=== PATIENT | female | born 1940 | race Caucasian/White ===

== ENCOUNTER 2020-07-21 00:38 | Emergency (ER) | payer MEDICARE, SELFPAY ==
[2020-07-21 00:42] VITALS: BP 134/94; PULSE 66; RESP 17; TEMP 36.9; O2SAT 96; BMI 28.0
--- NOTE | 2020-07-21 00:44 | CTR_ITS ---
PROCEDURE INFORMATION: Exam: CT Abdomen And Pelvis With Contrast Exam date and time: 07/21/2020 12:50 AM Age: 79 years old Clinical indication: Abdominal pain; Generalized; Prior surgery; Surgery type: Gb. Appy. Hystero. ; Patient HX: Abd pain with hematochezia this a. M. History of breast cancer. TECHNIQUE: Imaging protocol: Computed tomography of the abdomen and pelvis with contrast. Radiation optimization: All CT scans at this facility use at least one of these dose optimization techniques: automated exposure control; mA and/or kV adjustment per patient size (includes targeted exams where dose is matched to clinical indication); or iterative reconstruction. Contrast material: OMNI 300; Contrast volume: 95 ml; Contrast route: INTRAVENOUS (IV); COMPARISON: CT Chest 03-20-18 RADIATION DOSE METRICS: Total DLP (mGy-cm): 486.3 FINDINGS: Lungs: Right lower lobe calcified granuloma. Heart: Mild cardiomegaly. Mediastinal space: Small hiatal hernia. Liver: Normal. No mass. Gallbladder and bile ducts: Cholecystectomy. Pancreas: Normal. No ductal dilation. Spleen: No splenomegaly. Adrenal glands: Normal. No mass. Kidneys and ureters: 2.6 cm simple right renal cyst. Stomach and bowel: Duodenal diverticulum. Mild wall thickening of a portion of the descending colon with trace pericolonic fat stranding, consistent with colitis. Appendix: No evidence of acute appendicitis. Intraperitoneal space: No free air. No significant fluid collection. Vasculature: No abdominal aortic aneurysm. Lymph nodes: No enlarged lymph nodes. Urinary bladder: Unremarkable as visualized. Reproductive: Hysterectomy. Bones/joints: Unremarkable. No acute fracture. Soft tissues: Unremarkable. CT/CT abdomen pelvis w con* [id number] IMPRESSION: Mild wall thickening of a portion of the descending colon with trace pericolonic fat stranding, consistent with colitis. COMMENTS: Consistent with the [employer]'s Incidental Findings Committee white paper (J Am Josué Radiol 2018): Any incidental renal lesion less than 1 cm or classified as too small to characterize, or any incidental cystic renal lesion characterized as simple-appearing, is likely benign. No follow-up imaging is recommended for these lesions per consensus recommendations based on imaging criteria. Radiation Dose CTDIVOL = (mGy): DLP = 486.3 (mGy-cm)
--- NOTE | 2020-07-21 00:45 | ED_ITS ---
HPI - GI Bleed General: Chief complaint: GI Bleed Stated complaint: gi bleed Time Seen by Provider: 07/21/20 00:44 Source: patient Mode of arrival: ambulatory Limitations: no limitations History of Present Illness: HPI Narrative: 79-year-old female who states she was on the bathroom earlier and had a large bright red bloody bowel movement. She states she had some abdominal cramping but denies any dizziness and blood pressure here is normal. She states that she has had no history of GI bleeding in the past. Denies any worsening. Factors. She takes an aspirin but no other blood thinners. Associated symptoms: Denies chills, easy bruising, fever(s), headache(s) or rash Review of Systems Const: Denies: fever(s), chills, body aches or change in appetite Eyes: Denies: blurry vision or eye discomfort ENMT: Denies: throat pain or dental pain Card: Denies: chest pain Resp: Denies: dyspnea GI: Reports: hematochezia : Denies: dysuria Musc: Denies: neck pain or back pain Skin/Breast: Denies: rash Neuro: Denies: headache(s) Psych: Denies: depression Chandra/Lymph: Denies: easy bruising All/Imm: Denies: urticaria Physical Exam Const: COMMON NORMALS: no acute distress, patient oriented x3 and healthy appearing HENMT: COMMON NORMALS: normocephalic and atraumatic HEAD & SCALP: normocephalic and atraumatic Eye: COMMON NORMALS: Equal, round and reactive pupils present and EOMs intact bilaterally PUPIL: Yes Equal, round and reactive pupils present Neck/C-Spine: COMMON NORMALS: full ROM and supple Chest: COMMONS NORMALS: normal inspection of the chest and normal palpation of entire chest wall Resp: COMMON NORMALS: normal respiratory effort, No retractions, No use of accessory muscles and clear to auscultation bilaterally AUSCULTATION: clear to auscultation bilaterally Cardio: COMMON NORMALS: regular rate, regular rhythm and No murmurs present (Cardio) RATE: regular rate RHYTHM: regular rhythm GI: COMMON NORMALS: Normal to inspection, nondistended, normoactive bowel sounds present, Soft to palpation, non-tender and no masses PALPATION: Yes Soft to palpation OTHER: No hemorrhoid or fissure patient does have bright red blood in her underwear mucousy appearing. No dark tarry stool Extremity: COMMON NORMALS: normal to inspection and full ROM Neuro: COMMON NORMALS: patient oriented x3, moves all extremities and no focal motor deficits Psych: COMMON NORMALS: mental status grossly normal, Normal thought process present and cooperative THOUGHT PROCESS: Normal thought process present Skin: COMMON NORMALS: no rashes or lesions noted and no wounds GENERAL SKIN EXAM: no rashes or lesions noted Course Vital Signs: Vital signs: Vital Signs Temperature 98.4 F 07/21/20 00:42 Pulse Rate 77 07/21/20 02:00 Respiratory Rate 24 H 07/21/20 02:00 Blood Pressure 161/76 07/21/20 02:00 Pulse Oximetry 98 07/21/20 02:00 MDM - GI Bleed MDM Narrative: Medical decision making narrative: Patient presents here with colitis likely causing her blood in her stool. Patient's bleeding has improved and she had abdominal here with very minimal blood. Her hemoglobin and blood pressure here are normal. She has no signs of an upper GI bleed. I feel she is stable for discharge will place her on Cipro and Flagyl. She is to follow-up with her PCP in 3 to 5 days return to ER if she has any worsening. She is to return if she has any increased bleeding. She understands and agrees to plan. Lab Data: Labs: Lab Results 07/21/20 07/21/20 07/21/20 Range/Units 01:08 01:08 01:08 WBC 14.9 H (4.0-10.0) 10^3/ uL RBC 4.25 (4.1-5.3) 10^6/u L Hgb 12.6 (11.5-15.3) g/dL Hct 38.5 (37.0-47.0) % MCV 90.6 (81-99) fL MCH 29.6 (28.0-34.0) pg MCHC 32.7 (30.0-36.0) g/dL RDW 12.2 (12.1-15.1) % Plt Count 318 (130-400) 10^3/c mm MPV 9.3 (7.4-10.4) fL Neut % (Auto) 79.2 % Lymph % (Auto) 9.7 % Sanders % (Auto) 9.1 % Eos % (Auto) 0.6 % Baso % (Auto) 0.7 % Neut # (Auto) 11.81 H (1.8-7.7) 10^3/u L Lymph # (Auto) 1.5 (0.8-4.8) 10^3/u L Sanders # (Auto) 1.4 H (0.2-0.9) 10^3/u L Eos # (Auto) 0.1 (0.0-0.8) 10^3/u L Baso # (Auto) 0.1 (0.0-0.1) 10^3/u L Nucleated RBC % (a uto) 0 % Nucleated RBCs # 0.0 /100WBC PT 13.20 (12.1-14.9) SECO NDS INR 0.97 (0.8-1.2) Sodium 134 L (136-145) mmol/L Potassium 3.8 (3.5-5.1) mmol/L Chloride 99 (98-107) mmol/L Carbon Dioxide 26 (22-29) mmol/L Anion Gap 12.8 (5-19) BUN 17 (8-23) mg/dL Creatinine 0.8 (0.5-0.9) mg/dL GFR Calculation Not Reportable Glucose 185 H (65-115) mg/dL Calculated Osmolal ity 284 L (285-295) mOsm/k g Calcium 9.3 (8.5-10.5) mg/dL Total Bilirubin 0.2 (0.15-1.2) mg/dL AST 14 (0-32) U/L ALT 16 (0-33) U/L Alkaline Phosphata se 70 (35-105) IU/L Total Protein 7.0 (6.6-8.7) g/dL Albumin 4.0 (3.5-5.2) g/dL Globulin 3.0 (1.3-4.6) g/dL Lipase 66 H (13-60) U/L Blood Type Rho(D) Type Antibody Screen 07/21/20 Range/Units 01:15 WBC (4.0-10.0) 10^3/ uL RBC (4.1-5.3) 10^6/u L Hgb (11.5-15.3) g/dL Hct (37.0-47.0) % MCV (81-99) fL MCH (28.0-34.0) pg MCHC (30.0-36.0) g/dL RDW (12.1-15.1) % Plt Count (130-400) 10^3/c mm MPV (7.4-10.4) fL Neut % (Auto) % Lymph % (Auto) % Sanders % (Auto) % Eos % (Auto) % Baso % (Auto) % Neut # (Auto) (1.8-7.7) 10^3/u L Lymph # (Auto) (0.8-4.8) 10^3/u L Sanders # (Auto) (0.2-0.9) 10^3/u L Eos # (Auto) (0.0-0.8) 10^3/u L Baso # (Auto) (0.0-0.1) 10^3/u L Nucleated RBC % (a uto) % Nucleated RBCs # /100WBC PT (12.1-14.9) SECO NDS INR (0.8-1.2) Sodium (136-145) mmol/L Potassium (3.5-5.1) mmol/L Chloride (98-107) mmol/L Carbon Dioxide (22-29) mmol/L Anion Gap (5-19) BUN (8-23) mg/dL Creatinine (0.5-0.9) mg/dL GFR Calculation Glucose (65-115) mg/dL Calculated Osmolal ity (285-295) mOsm/k g Calcium (8.5-10.5) mg/dL Total Bilirubin (0.15-1.2) mg/dL AST (0-32) U/L ALT (0-33) U/L Alkaline Phosphata se (35-105) IU/L Total Protein (6.6-8.7) g/dL Albumin (3.5-5.2) g/dL Globulin (1.3-4.6) g/dL Lipase (13-60) U/L Blood Type O Negative Rho(D) Type Negative Antibody Screen Negative Imaging Data^: CT Abd/Pel: Attestation: I personally reviewed and interpreted this imaging study as follows: Radiologist's impression: [address] [address] [address] Scan Report Signed Patient: Tiara Guallpa Unit #: [id number] : 1940 Age/Sex: 79 / F ADM Date: 07/21/20 Loc: ER Room/Bed: Attending Dr: Ordering Provider/Ordering MD: Adri Galeas MD Date of Service: 07/21/20 Procedure(s): CT abdomen pelvis w con* [id number] Accession Number(s): [id number] Report Number: [id number] PROCEDURE INFORMATION: Exam: CT Abdomen And Pelvis With Contrast Exam date and time: 07/21/2020 12:50 AM Age: 79 years old Clinical indication: Abdominal pain; Generalized; Prior surgery; Surgery type: Gb. Appy. Hystero. ; Patient HX: Abd pain with hematochezia this a. M. History of breast cancer. TECHNIQUE: Imaging protocol: Computed tomography of the abdomen and pelvis with contrast. Radiation optimization: All CT scans at this facility use at least one of these dose optimization techniques: automated exposure control; mA and/or kV adjustment per patient size (includes targeted exams where dose is matched to clinical indication); or iterative reconstruction. Contrast material: OMNI 300; Contrast volume: 95 ml; Contrast route: INTRAVENOUS (IV); COMPARISON: CT Chest 03-20-18 RADIATION DOSE METRICS: Total DLP (mGy-cm): 486.3 FINDINGS: Lungs: Right lower lobe calcified granuloma. Heart: Mild cardiomegaly. Mediastinal space: Small hiatal hernia. Liver: Normal. No mass. Gallbladder and bile ducts: Cholecystectomy. Pancreas: Normal. No ductal dilation. Spleen: No splenomegaly. Adrenal glands: Normal. No mass. Kidneys and ureters: 2.6 cm simple right renal cyst. Stomach and bowel: Duodenal diverticulum. Mild wall thickening of a portion of the descending colon with trace pericolonic fat stranding, consistent with colitis. Appendix: No evidence of acute appendicitis. Intraperitoneal space: No free air. No significant fluid collection. Vasculature: No abdominal aortic aneurysm. Lymph nodes: No enlarged lymph nodes. Urinary bladder: Unremarkable as visualized. Reproductive: Hysterectomy. Bones/joints: Unremarkable. No acute fracture. Soft tissues: Unremarkable. CT/CT abdomen pelvis w con* [id number] IMPRESSION: Mild wall thickening of a portion of the descending colon with trace pericolonic fat stranding, consistent with colitis. Discharge Plan Discharge Patient Disposition: Home Clinical Impression: Colitis, Acute lower GI bleeding Condition: Stable Prescriptions: New Cipro 500 mg tablet 500 mg PO BID Qty: 14 RF: 0 Flagyl 500 mg tablet 500 mg PO Q8H 7 Days Qty: 21 RF: 0 No Action lisinopril 20 mg Tablet 20 mg PO BID RF: 0 chlorthalidone 25 mg Tablet 12.5 mg PO DAILY RF: 0 bisoprolol fumarate 10 mg Tablet 10 mg PO DAILY RF: 0 famotidine 20 mg Tablet 20 mg PO DAILY RF: 0 aspirin 81 mg Tablet 81 mg PO DAILY RF: 0 Discharge Orders: Discharge ED (Routine); Ordered 07/21/20 Ordered By: Adri Galeas Referrals: Hector Jenkins MD [Primary Care Provider] - 1-3 days Discharge Diet: Advance as tolerated Discharge Activity: Resume usual activity Patient Instructions: Rectal Bleeding (ED), Infectious Colitis (ED) Coding Level of Care Code ED Manager Target for Chg Fwd Exam Comprehensive
[2020-07-21 00:49] VITALS: BP 174/70; PULSE 64; RESP 21; O2SAT 97
[2020-07-21] MEDS: sodium chloride 0.9% 1,000 ML 999 ML IV (01:20)
[2020-07-21 01:27] LABS: Basophils # 0.1 10^3/uL (0.0-0.1); Basophils % 0.7 %; Eosinophils # 0.1 10^3/uL (0.0-0.8); Eosinophils % 0.6 %; Hematocrit 38.5 % (37.0-47.0); Hemoglobin 12.6 g/dL (11.5-15.3); Lymphocytes # 1.5 10^3/uL (0.8-4.8); Lymphocytes % 9.7 %; Mean Corpuscular HGB Conc 32.7 g/dL (30.0-36.0); Mean Corpuscular Hemoglobin 29.6 pg (28.0-34.0); Mean Corpuscular Volume 90.6 fL (81-99); Mean Platelet Volume 9.3 fL (7.4-10.4); Monocytes # 1.4 10^3/uL (0.2-0.9); Monocytes % 9.1 %; Neutrophils # 11.81 10^3/uL (1.8-7.7); Neutrophils % 79.2 %; Nucleated Red Blood Cells % 0 %; Platelet Count 318 10^3/cmm (130-400); Red Blood Count 4.25 10^6/uL (4.1-5.3); Red Cell Distribution Width 12.2 % (12.1-15.1); White Blood Count 14.9 10^3/uL (4.0-10.0)
[2020-07-21 01:40] LABS: INR 0.97 (0.8-1.2)
[2020-07-21 01:47] VITALS: PULSE 62; RESP 25; O2SAT 98
[2020-07-21 01:48] LABS: Alanine Aminotransferase 16 U/L (0-33); Alkaline Phosphatase 70 IU/L (35-105); Anion Gap 12.8 (5-19); Aspartate Amino Transferase 14 U/L (0-32); Blood Urea Nitrogen 17 mg/dL (8-23); Calcium 9.3 mg/dL (8.5-10.5); Carbon Dioxide 26 mmol/L (22-29); Chloride 99 mmol/L (98-107); Glucose 185 mg/dL (65-115); Lipase 66 U/L (13-60); Osmolality Calculated 284 mOsm/kg (285-295); Potassium 3.8 mmol/L (3.5-5.1); Sodium 134 mmol/L (136-145); Total Bilirubin 0.2 mg/dL (0.15-1.2)
[2020-07-21 02:00] VITALS: BP 161/76; PULSE 77; RESP 24; O2SAT 98
[2020-07-21] MEDS: iohexol 300 mg/mL 100 mL Btl IV (02:04)
[2020-07-21 03:29] VITALS: BP 165/74; PULSE 75; RESP 16; TEMP 36.9; O2SAT 97
== END 2020-07-21 03:29 | disposition home or self-care (01) ==
PROVIDERS: Emergency Provider Emergency Medicine; PCP Family Medicine
DX: K52.9 Noninfective gastroenteritis and colitis, unspecified (principal); K92.2 Gastrointestinal hemorrhage, unspecified; Z79.82 Long term (current) use of aspirin
CPT/HCPCS: 36415; 74177; 80053; 83690; 85025; 85610; 86850; 86900; 96360; 99283; J7030; Q9967

== ENCOUNTER 2021-10-10 09:14 | Emergency (ER) | payer MEDICARE, SELFPAY ==
--- NOTE | 2021-10-10 09:16 | XRR_ITS ---
PROCEDURE INFORMATION: Exam: XR Chest Exam date and time: 10/10/2021 9:33 AM Age: 81 years old Clinical indication: Cough and dyspnea. TECHNIQUE: Imaging protocol: XR of the chest. Views: 1 view. COMPARISON: CT chest w con* [id number] 03/20/2018 3:32 AM FINDINGS: Lungs: There is bibasilar scarring. Pleural spaces: No pleural effusion. No pneumothorax. Heart/Mediastinum: The heart is enlarged. No gross evidence of pneumomediastinum. Bones/joints: No gross fracture. Other findings: There are calcified granulomata bilaterally. XR/XR chest 1V portable [id number] IMPRESSION: Approximately unchanged cardiomegaly.
--- NOTE | 2021-10-10 09:16 | ECG_ITS ---
[facility] Test Date: 2021-10-10 Pat Name: Tiara Guallpa Department: Room: Gender: Female [employer]: : 1940 Requested By: Salo Gannon Order Number: [id number] Ozzie MD: Alexis Joel M.D. Measurements Intervals [place] Rate: 53 P: 55 W[place]: 221 QRS: 71 QRSD: 101 T: 71 QT: 420 QTc: 395 Interpretive Statements SINUS BRADYCARDIA WITH FIRST DEGREE AV BLOCK MINIMAL ST DEPRESSION [0.025+ mV ST DEPRESSION] Compared to ECG 09/16/2017 22:50:27 First degree AV block now present ST (T wave) deviation now present Electronically Signed On 10-10-2021 17:12:39 CDT by Alexis Joel M.D. [id number]
[2021-10-10 09:20] VITALS: BP 164/75; PULSE 54; RESP 16; TEMP 36.6; O2SAT 94; BMI 27.4
--- NOTE | 2021-10-10 09:34 | W.ED.WEAKNES ---
HPI - Weakness General: Chief complaint: Weakness Stated complaint: WEAKNESS/ N/V/D Time Seen by Provider: 10/10/21 09:16 Source: patient Mode of arrival: EMS Limitations: no limitations History of Present Illness: 81-year-old female presents to the emergency room with complaints of weakness nausea and vomiting that began this morning. She had abdominal pain that precipitated the nausea and vomiting is mostly resolved at this time. Patient has some mild dysuria. She not noticed any hematuria. She denies any cough or shortness of breath no chest pain. MD Complaint: generalized weakness Onset (ago): hour(s) Duration: constant Location: generalized Migration: none Severity: mild Quality: aching Relieving factors: none Exacerbating factors: none Associated symptoms: Reports nausea and vomiting; Denies chest pain, chills, confusion, melena, decreased appetite, diaphoresis, dysuria, easy bruising, fever(s), headache(s), myalgias, rash, short of breath or syncope Review of Systems Const: Denies: fever(s), chills or diaphoresis ENMT: Denies: throat pain, ear or mastoid pain, nasal discharge or nasal congestion Card: Denies: chest pain or syncope Resp: Denies: dyspnea, productive cough or non-productive cough GI: Reports: nausea and vomiting; Denies: melena : Denies: dysuria Skin/Breast: Denies: rash or pruritus Neuro: Denies: headache(s) or confusion Chandra/Lymph: Denies: easy bruising PFSH ED PFSH: Medical History Gastroesophageal reflux Hypertension Social History Smoking and tobacco status: never smoked Alcohol intake: unknown Physical Exam Const: GENERAL APPEARANCE: cooperative and comfortable ORIENTATION/CONSCIOUSNESS: Yes awake, Yes oriented to person, Yes oriented to place and Yes oriented to time HENMT: COMMON NORMALS: normocephalic and atraumatic HEAD & SCALP: normocephalic and atraumatic Neck/C-Spine: COMMON NORMALS: no JVD Resp: COMMON NORMALS: normal respiratory effort, No retractions, No use of accessory muscles and clear to auscultation bilaterally AUSCULTATION: clear to auscultation bilaterally Cardio: COMMON NORMALS: no JVD, regular rate, regular rhythm and No murmurs present (Cardio) RATE: regular rate RHYTHM: regular rhythm GI: COMMON NORMALS: Soft to palpation and No hepatosplenomegaly present AUSCULTATION: Yes normoactive bowel sounds PALPATION: Yes Soft to palpation, No Tenderness to palpation present (GI), No Guarding due to palpation present (GI) and Yes No hepatosplenomegaly present Extremity: COMMON NORMALS: normal to inspection, capillary refill normal, no clubbing, cyanosis or edema, no calf tenderness and no pedal edema Neuro: SENSORIUM/ORIENTATION: Yes oriented to person, Yes oriented to place and Yes oriented to time Skin: COMMON NORMALS: no rashes or lesions noted GENERAL SKIN EXAM: no rashes or lesions noted Course Vital Signs: Vital signs: Vital Signs Temperature 97.9 F 10/10/21 09:20 Pulse Rate 49 L 10/10/21 12:06 Respiratory Rate 20 H 10/10/21 12:06 Blood Pressure 155/72 10/10/21 12:06 Pulse Oximetry 96 10/10/21 12:06 MDM - Weakness Medical Decision Making Labs reviewed with patient. Blood sugars elevated recommend she follow-up with her primary care doctor with that. Overall vital signs are good she is feeling better we will discharge patient home clear liquid diet for 24 to 48 hours advance as tolerated ondansetron to use as needed. Medical Records I reviewed the patient's medical records. Lab Data I reviewed the patient's lab results. : 10/10/21 09:50 10/10/21 09:50 Radiology Impressions Chest X-Ray 10/10/21 09:16 IMPRESSION: Approximately unchanged cardiomegaly. Abdomen/Pelvis CT 10/10/21 09:40 IMPRESSION: 1. No evidence of acute diverticulitis. 2. Small esophageal hiatal hernia. 3. No hydronephrosis in either kidney. No obstructing renal or ureteral calculi. 4. Prior hysterectomy. 5. No acute abdominal or pelvic findings. Laboratory Results WBC 8.5 10^3/uL (4.0-10.0) 10/10/21 09:50 RBC 4.46 10^6/uL (4.1-5.3) 10/10/21 09:50 Hgb 13.1 g/dL (11.5-15.3) 10/10/21 09:50 Hct 39.9 % (37.0-47.0) 10/10/21 09:50 MCV 89.5 fl (81-99) 10/10/21 09:50 MCH 29.4 pg (28.0-34.0) 10/10/21 09:50 MCHC 32.8 g/dL (30.0-36.0) 10/10/21 09:50 RDW 12.3 % (12.1-15.1) 10/10/21 09:50 Plt Count 274 10^3/cmm (130-400) 10/10/21 09:50 MPV 9.5 fL (7.4-10.4) 10/10/21 09:50 Neut % (Auto) 72.3 % 10/10/21 09:50 Lymph % (Auto) 16.3 % 10/10/21 09:50 [place] % (Auto) 7.3 % 10/10/21 09:50 Eos % (Auto) 1.9 % 10/10/21 09:50 Baso % (Auto) 0.8 % 10/10/21 09:50 Neut # (Auto) 6.16 10^3/uL (1.8-7.7) 10/10/21 09:50 Lymph # (Auto) 1.4 10^3/uL (0.8-4.8) 10/10/21 09:50 [place] # (Auto) 0.6 10^3/uL (0.2-0.9) 10/10/21 09:50 Eos # (Auto) 0.2 10^3/uL (0.0-0.8) 10/10/21 09:50 Baso # (Auto) 0.1 10^3/uL (0.0-0.1) 10/10/21 09:50 Nucleated RBC % (auto) 0 % 10/10/21 09:50 Nucleated RBCs # 0.0 /100WBC 10/10/21 09:50 Sodium 131 mmol/L (136-145) L 10/10/21 09:50 Potassium 3.9 mmol/L (3.5-5.1) 10/10/21 09:50 Chloride 94 mmol/L (98-107) L 10/10/21 09:50 Carbon Dioxide 25 mmol/L (22-29) 10/10/21 09:50 Anion Gap 15.9 (5-19) 10/10/21 09:50 BUN 16 mg/dL (8-23) 10/10/21 09:50 Creatinine 0.7 mg/dL (0.5-0.9) 10/10/21 09:50 GFR Calculation Not Reportable 10/10/21 09:50 Glucose 184 mg/dL (65-115) H 10/10/21 09:50 Calculated Osmolality 278 mOsm/kg (285-295) L 10/10/21 09:50 Calcium 9.9 mg/dL (8.5-10.5) 10/10/21 09:50 Total Bilirubin 0.2 mg/dL (0.15-1.2) 10/10/21 09:50 AST 20 U/L (0-32) 10/10/21 09:50 ALT 17 U/L (0-33) 10/10/21 09:50 Alkaline Phosphatase 75 IU/L (35-105) 10/10/21 09:50 Total Protein 7.9 g/dL (6.6-8.7) 10/10/21 09:50 Albumin 4.2 g/dL (3.5-5.2) 10/10/21 09:50 Globulin 3.7 g/dL (1.3-4.6) 10/10/21 09:50 Discharge Plan Discharge Patient Disposition: Home Clinical Impression: Gastroenteritis, Hyperglycemia Condition: Stable Prescriptions: New ondansetron HCl 4 mg tablet 4 mg PO Q6H PRN (Reason: nausea and vomiting) Qty: 20 0RF No Action lisinopril 20 mg Tablet 20 mg PO BID 0RF chlorthalidone 25 mg Tablet 12.5 mg PO QAM 0RF bisoprolol fumarate 10 mg Tablet 10 mg PO QAM 0RF famotidine 20 mg Tablet 20 mg PO QAM 0RF Aspir-81 81 mg Tablet,Delayed Release (Dr/Ec) 81 mg PO QAM 0RF Discharge Orders: Discharge ED (Routine); Ordered 10/10/21 Ordered By: Salo Moon Referrals: Hector Jenkins MD [Primary Care Provider] - Discharge Diet: Clear Liquid Discharge Activity: Increase activity as tolerated Patient Instructions: Opioid Safety Activity Restrictions/Additional Instructions: Clear liquid diet for 24 to 48 hours and advance as tolerated. Use ondansetron as needed for nausea vomiting. Coding Level of Care Code ED Master Certified Rv Technician for Chg Fwd Exam Comprehensive
--- NOTE | 2021-10-10 09:40 | CT_ITS ---
WS: [id number] CT ABDOMEN PELVIS TECHNIQUE: Noncontrast CT of the abdomen and pelvis with coronal and sagittal reformatted images. CLINICAL INFORMATION: Abdominal pain COMPARISON: July 21, 2020 DLP: 1125.[address] scans at [facility] use at least one of these dose optimization techniques: automated e xposure control; mA and/or kV adjustment per patient size (includes targeted exams where dose is matc hed to clinical indication); or iterative reconstruction. FINDINGS: Normal sigmoid colon. No evidence of acute diverticulitis. Colon is otherwise normal in appearance. Calcified granulomas in the lung bases. Subsegmental atelectasis RIGHT middle lobe. Hepatomegaly. Hem angioma RIGHT hepatic lobe better visualized on the prior contrast-enhanced CT Prior cholecystectomy. Small esophageal hiatal hernia. Tiny fat-containing umbilical hernia. Adrenal glands are normal. RIGHT renal cyst measuring 2.6 cm. No obstructing renal or ureteral calculi. Splen ic artery calcification. Noncontrast pancreas is normal. Normal noncontrast spleen. Slight anterolist hesis L4 on L5. Prior hysterectomy. CT/CT abdomen pelvis con [id number] IMPRESSION: 1. No evidence of acute diverticulitis. 2. Small esophageal hiatal hernia. 3. No hydronephrosis in either kidney. No obstructing renal or ureteral calcul i. 4. Prior hysterectomy. 5. No acute abdominal or pelvic findings.
[2021-10-10 10:24] LABS: Basophils # 0.1 10^3/uL (0.0-0.1); Basophils % 0.8 %; Eosinophils # 0.2 10^3/uL (0.0-0.8); Eosinophils % 1.9 %; Hematocrit 39.9 % (37.0-47.0); Hemoglobin 13.1 g/dL (11.5-15.3); Lymphocytes # 1.4 10^3/uL (0.8-4.8); Lymphocytes % 16.3 %; Mean Corpuscular HGB Conc 32.8 g/dL (30.0-36.0); Mean Corpuscular Hemoglobin 29.4 pg (28.0-34.0); Mean Corpuscular Volume 89.5 fl (81-99); Mean Platelet Volume 9.5 fL (7.4-10.4); Monocytes # 0.6 10^3/uL (0.2-0.9); Monocytes % 7.3 %; Neutrophils # 6.16 10^3/uL (1.8-7.7); Neutrophils % 72.3 %; Nucleated Red Blood Cells % 0 %; Platelet Count 274 10^3/cmm (130-400); Red Blood Count 4.46 10^6/uL (4.1-5.3); Red Cell Distribution Width 12.3 % (12.1-15.1); White Blood Count 8.5 10^3/uL (4.0-10.0)
[2021-10-10 10:30] VITALS: BP 133/80; PULSE 50; RESP 17; O2SAT 96
[2021-10-10 10:34] LABS: Alanine Aminotransferase 17 U/L (0-33); Albumin Level 4.2 g/dL (3.5-5.2); Alkaline Phosphatase 75 IU/L (35-105); Anion Gap 15.9 (5-19); Aspartate Amino Transferase 20 U/L (0-32); Blood Urea Nitrogen 16 mg/dL (8-23); Calcium 9.9 mg/dL (8.5-10.5); Carbon Dioxide 25 mmol/L (22-29); Chloride 94 mmol/L (98-107); Creatinine Clr Calc Pharmacy 49.0223; Globulin 3.7 g/dL (1.3-4.6); Glucose 184 mg/dL (65-115); Osmolality Calculated 278 mOsm/kg (285-295); Potassium 3.9 mmol/L (3.5-5.1); Sodium 131 mmol/L (136-145); Total Bilirubin 0.2 mg/dL (0.15-1.2); Total Protein 7.9 g/dL (6.6-8.7)
[2021-10-10 11:00] VITALS: BP 119/75; PULSE 50; RESP 19; O2SAT 95
[2021-10-10] MEDS: promethazine 25 mg/mL SDV 1 mL 12.5 MG IM (11:10)
[2021-10-10] MEDS: sodium chloride 0.9% 500 ML 999 ML IV (11:11)
[2021-10-10 12:06] VITALS: BP 155/72; PULSE 49; RESP 20; O2SAT 96
== END 2021-10-10 12:05 | disposition home or self-care (01) ==
PROVIDERS: Emergency Provider Family Medicine; PCP Family Medicine
DX: K52.9 Noninfective gastroenteritis and colitis, unspecified (principal); R73.9 Hyperglycemia, unspecified
CPT/HCPCS: 71045; 74176; 80053; 85025; 93005; 96372; 99284; J2550; J7040